=== PATIENT | female | born 1985 | race Caucasian/White ===

== ENCOUNTER 2021-10-08 07:30 | Inpatient (IN) | payer OTHER ==
[2021-10-08 08:40] VITALS: BMI 28.6
[2021-10-08] MEDS ORDERED: morphine SULFATE/PF 1 MG/2 ML (2cc Syringe - QUVA) ONE (09:19)
[2021-10-08] MEDS ORDERED: SUCCINYLCHOLINE CHLORIDE 200 MG/10 ML SYRINGE ONE (09:19)
[2021-10-08] MEDS ORDERED: PROPOFOL 20 ML ONE (09:19)
[2021-10-08] MEDS ORDERED: ONDANSETRON 4 MG/2 ML VIAL ONE (10:06)
[2021-10-08] MEDS ORDERED: OXYTOCIN 10 UNITS/ML VIAL ONE (10:06)
[2021-10-08] MEDS ORDERED: PHENYLEPHRINE HCL 10 MG/1 ML SINGLE DOSE VIAL ONE (10:06)
[2021-10-08] MEDS ORDERED: SENNOSIDES/DOCUSATE COMBO (SENNA PLUS) TABLET (UD) PO PRN (10:49)
[2021-10-08] MEDS ORDERED: ONDANSETRON 4 MG/2 ML VIAL IVPB PRN (10:49)
[2021-10-08] MEDS ORDERED: oxyCODONE HCL 5 MG TABLET PO PRN ×2 (10:49→11:00)
[2021-10-08] MEDS ORDERED: IBUPROFEN 800 MG/8 ML IJ IVPB SCH (11:00)
[2021-10-08] MEDS ORDERED: CITRIC ACID/SODIUM CITRATE 30 ML UNIT-DOSE CUP PO ONE (11:45)
[2021-10-08] MEDS ORDERED: ELECTROLYTE-148 SOLN 1,000 ML IV ONE (11:45)
[2021-10-08] MEDS ORDERED: ACETAMINOPHEN INJECTION 100 ML IVPB ONE (12:08)
[2021-10-08] MEDS ORDERED: ELECTROLYTE-148 SOLN 1,000 ML IV SCH (12:15)
[2021-10-08] MEDS: ACETAMINOPHEN 1000 MG/100 ML BAG IVPB SCH ×3 (12:15→23:08)
[2021-10-08] MEDS: OXYTOCIN 20 UNITS in 0.9% NS 20 UNIT/1,000 ML INFUS.BAG IV SCH (16:17)
[2021-10-08] MEDS: IBUPROFEN 800 MG/8 ML IJ IVPB SCH (20:27)
[2021-10-09] MEDS: OXYTOCIN 20 UNITS in 0.9% NS 20 UNIT/1,000 ML INFUS.BAG IV SCH (02:10)
[2021-10-09] MEDS: IBUPROFEN 800 MG/8 ML IJ IVPB SCH (02:34)
[2021-10-09] MEDS: ACETAMINOPHEN 1000 MG/100 ML BAG IVPB SCH (05:18)
[2021-10-09 06:40] LABS: BASO % 0.5 % (0-2.0); EOS % 1.4 % (0-4.5); HEMATOCRIT 34.6 % (32.4-45.2); HEMOGLOBIN 11.8 GM/dL (10.7-15.3); LYMPH % 12.1 % (8-40); MCH 32.1 pg (25.7-33.7); MEAN CELL VOLUME 94.5 fl (80-96); MEAN PLT VOLUME 6.9 fl (7.5-11.1); MONO % 12.1 % (3.8-10.2); NEUT % 73.9 % (42.8-82.8); PLATELET COUNT 214 10^3/uL (134-434); RBC 3.66 M/mm3 (3.60-5.2); RDW 13.2 % (11.6-15.6); WHITE BLOOD COUNT 10.4 K/mm3 (4.0-10.0)
[2021-10-09] MEDS ORDERED: oxyCODONE HCL 5 MG TABLET PO PRN ×2 (08:12→08:13)
[2021-10-09] MEDS ORDERED: ACETAMINOPHEN 500 MG TABLET (FP) PO PRN (08:13)
[2021-10-09] MEDS: IBUPROFEN 600 MG TABLET (FP) PO SCH ×3 (09:22→20:53)
[2021-10-09] MEDS: SIMETHICONE 80 MG TAB.CHEW (FP) PO PRN ×2 (10:22→19:34)
[2021-10-09] MEDS ORDERED: BISACODYL 10 MG SUPP.RECT RC PRN (10:50)
[2021-10-10] MEDS: IBUPROFEN 600 MG TABLET (FP) PO SCH ×3 (03:25→14:53)
[2021-10-10] MEDS: SIMETHICONE 80 MG TAB.CHEW (FP) PO PRN ×3 (03:25→14:55)
[2021-10-10 12:12] VITALS: BP 122/71; PULSE 83; RESP 18; TEMP 99.2
== END 2021-10-10 16:00 | disposition home or self-care (01) | DRG 540 ==
LOC: JLDR 07:30 → J3W 12:30
PROVIDERS: ADMIT Specialist; ATTEND Specialist
PROC: 10D00Z1 Extraction of Products of Conception, Low, Open Approach (ICD-10-PCS; principal; 2021-10-08)
PROC: 0DNW0ZZ Release Peritoneum, Open Approach (ICD-10-PCS; 2021-10-08)
DX: O34.219 Maternal care for unspecified type scar from previous cesarean delivery (principal); Z3A.39 39 weeks gestation of pregnancy; Z37.0 Single live birth; N73.6 Female pelvic peritoneal adhesions (postinfective)
CPT/HCPCS: 36415; 80053; 85025; 85027; 85610; 85730; 86780; 86850; 86900; 86901; 87389; 87529; 88304-TC; 88307-TC; 93970-TC; 94010; C9803-CS; U0003; U0005